=== PATIENT | male | born 1945 | race Caucasian/White ===

== ENCOUNTER → 2017-06-26 | Outpatient (CLI) | payer OTHER ==
[~2017-06-26] MED LIST: ACID CONTROL20 MG PO; ALPRAZOLAM 0.0.25 MG PO; ANTIDEPRESSANT; ASPIRIN325 PO; ATENOLOL 50MG T50 MG PO; CHEWABLE PRENA1 EACH PO; CIPRO250 M1 PO; CIPROFLOXACIN500 M1 PO; CLONIDINE; CLONIDINE HCL0.2 M2 PO; CLONIDINE PO; CLONIDINE0.1 PO; COZAAR 25 MG TA25 M2 PO; DARVOCET-N 1001 EACH PO; DILTIAZEM 24HR180 M1 PO; FAMOTIDINE; FLEXERIL PO; FLOMAX PO; HCTZ; HCTZ OR; HYDROCHLOROTHIA25 M1 PO; IBUPROFEN 200200 M1 PO; K-DUR10 ME1 OR; LANSOPRAZOLE30 MG PO; LASIX 40 MG TAB40 M2 PO; LEVAQUIN 500 M500 M2 PO; LIPITOR; LISINOPRIL20 MG PO; LISINOPRIL40 MG PO; LOPRESSOR 50 MG50 M1 PO; MAXZIDE-25 MG1 EACH PO; METOPROLOL SUCC25 M1 PO; MULTIVITAMINS1 EAC7 PO; NABUMETONE 500500 M1 PO; NAPROSYN500 MG PO; NEURONTIN600 MG PO; NICOTINE TRANSD21 M1 TD; NORCO 5-325 TA1 EACH PO; NORFLEX100 MG PO; PERCOCET 5-3251 EACH PO; PHENERGAN 25 MG25 M1 PO; PREDNISONE 20 M20 M1 PO; PROAIR HFA8.5 GM IH; REVIA 50 MG TAB50 M1 OR; TAMSULOSIN HCL0.4 M1 PO; TAMSULOSIN HCL0.4 MG PO; TRAMADOL 50 MG50 MG PO; TYLENOL325 MG PO; VICODIN PO; VISINE15 ML OPHTHALMIC; VITAMIN B-1100 M1 PO; VITAMIN D31000 UNI2 PO; VITAMIN D31000 UNIT PO; WELLBUTRIN 100100 M1 OR; XANAX 0.5 MG0.5 M1 PO; XARELTO10 MG PO; XARELTO20 MG PO; ZOFRAN ODT4 MG PO; ZOFRAN4 MG PO; ZYPREXA2.5 MG; ZYPREXA2.5 MG PO; [UNRECOGNIZED DRUG - REMARK]
--- NOTE | ~2017-06-26 | 2DMMODE ---
[facility] [place] [address] 2 D/M-MODE ECHOCARDIOGRAM Name: NIKOS LIVINGSTON Room #: REG [facility]#: [id number] Admission: 06/26/17 Attend Phys: Vamshi Shaw MD Discharge: Date of : 47 Date of Service: 06/26/17 1102 Report #: [id number] THIS REPORT FOR: //name// APPROVED REPORT Study performed: 06/26/2017 10:03:16 EXAM: Comprehensive 2D, Doppler, and color-flow Echocardiogram Patient Location: Out-Patient Status: routine BSA: 2.22 HR: 70 bpm BP: 180/82 mmHg Rhythm: NSR Other Information Study Quality: Adequate Indications History of Afib, CVA, HTN 2D Dimensions RVDd: 38.98 mm LVEF(%): 60.71 (>50%) IVSd: 14.31 (7-11mm) LVOT Diam: 21.56 (18-24mm) LVDd: 55.54 mm PWd: 14.04 (7-11mm) Ascending Ao: 42.96 (22-36mm) LVDs: 37.30 (25-40mm) Aortic Root: 40.77 mm Spicer's LVEF: 60.71 % Volumes Left Atrial Volume (Systole) Single Plane 4CH: 42.69 mL Single Plane 2CH: 41.06 mL LA ESV Index: 20.00 mL/m2 Aortic Valve AoV Peak Vicente.: 3.05 m/s AO Peak Gr.: 37.15 mmHg LVOT Max P.76 mmHg AO Mean Gr.: 19.21 mmHg AO V2 Mean: 2.06 m/s LVOT Max V: 1.30 m/s AO V2 VTI: 63.58 cm ALEN Vmax: 1.56 cm2 AI Vmax: 3.94 m/s AI [place]: 2.48 m/s2 [facility] [place] [address] 2 D/M-MODE ECHOCARDIOGRAM Name: NIKOS LIVINGSTON Room #: REG [facility]#: [id number] Admission: 06/26/17 Attend Phys: Vamshi Shaw MD Discharge: Date of : 47 Date of Service: 06/26/17 1102 Report #: [id number] AI PHT: 460.97 ms Mitral Valve E/A Ratio: 0.6 MV Decel. Time: 219.02 ms MV E Max Vicente.: 0.61 m/s MV A Vicente.: 0.98 m/s MV PHT: 63.52 ms IVRT: 124.57 ms Pulmonary Valve PV Peak Vicente.: 0.73 m/s PV Peak Gr.: 2.14 mmHg Tricuspid Valve RAP Estimate: 5.00 mmHg Left Ventricle The left ventricle is normal size. There is normal LV segmental wall motion. Moderate concentric left ventricular hypertrophy. Left ventricular systolic function is normal. LVEF is 60-65%. Mild diastolic dysfunction is present (impaired relaxation pattern). Right Ventricle The right ventricle is normal size. The right ventricular systolic function is normal. Atria The left atrium size is normal. The right atrium size is normal. Aortic Valve Aortic valve is calcified. Moderate aortic regurgitation. There is mild valvular aortic stenosis. Calculated aortic valve area is 1.6 cm2 with maximum pressure gradient of 37mmHg and mean pressure gradient of 19mmHg. Mitral Valve The mitral valve is normal in structure. Trace mitral regurgitation. No evidence of mitral valve stenosis. Tricuspid Valve The tricuspid valve is normal in structure. There is no tricuspid valve regurgitation noted. Pulmonic Valve [address] [address] 2 D/M-MODE ECHOCARDIOGRAM Name: NIKOS LIVINGSTON Room #: REG [facility]#: [id number] Admission: 06/26/17 Attend Phys: Vamshi Shaw MD Discharge: Date of : 47 Date of Service: 06/26/17 1102 Report #: [id number] The pulmonary valve is normal in structure. Trace pulmonic regurgitation. Great Vessels Aortic root is dilated at 4.1. Ascending aorta is dilated at 4.3cm. IVC is normal in size and collapses >50% with inspiration. Pericardium There is no pericardial effusion. <Conclusion> The left ventricle is normal size. Moderate concentric left ventricular hypertrophy. Left ventricular systolic function is normal. The right ventricle is normal size. The left atrium size is normal. There is mild valvular aortic stenosis. Calculated aortic valve area is 1.6 cm2 with maximum pressure gradient of 37mmHg and mean pressure gradient of 19mmHg. Moderate aortic regurgitation. There is no pericardial effusion. <ELECTRONICALLY SIGNED> By: Vamshi Shaw MD 06/26/17 1102 01 110 Vamshi Shaw MD /INF
== END ==
LOC: CV 08:29
DX: I51.7 Cardiomegaly (principal); I35.1 Nonrheumatic aortic (valve) insufficiency; I10 Essential (primary) hypertension; I48.91 Unspecified atrial fibrillation

== ENCOUNTER → 2018-01-01 | Outpatient (CLI) | payer OTHER | LOC: NUC 12-18 07:04 | DX: I48.91 Unspecified atrial fibrillation (principal); R55 Syncope and collapse; I10 Essential (primary) hypertension; Z72.0 Tobacco use ==

== ENCOUNTER 2019-09-14 09:10 | Emergency (ER) | payer OTHER ==
[~2019-09-14] VITALS: Ht 175.3 cm; Wt 88.5 kg
[2019-09-14 10:11] VITALS: BP 137/56
[2019-09-14] MEDS ORDERED: TRIAMTERENE/HCT1 CA1 PO (10:36)
== END 2019-09-14 10:11 | disposition home or self-care (01) ==
LOC: ER 09:10
DX: R07.89 Other chest pain (principal); I10 Essential (primary) hypertension; J45.909 Unspecified asthma, uncomplicated; K21.9 Gastro-esophageal reflux disease without esophagitis; I48.91 Unspecified atrial fibrillation; Z87.891 Personal history of nicotine dependence; Z79.01 Long term (current) use of anticoagulants; Z88.0 Allergy status to penicillin; Z88.2 Allergy status to sulfonamides; Z79.899 Other long term (current) drug therapy; Z87.11 Personal history of peptic ulcer disease; W10.9XXA Fall (on) (from) unspecified stairs and steps, initial encounter; Y93.89 Activity, other specified; Y92.89 Other specified places as the place of occurrence of the external cause; Y99.9 Unspecified external cause status

== ENCOUNTER 2019-10-04 03:13 | Emergency (ER) | payer OTHER ==
[~2019-10-04] VITALS: Ht 175.3 cm; Wt 90.7 kg
[~2019-10-04 03:13] MED LIST changes: +TRIAMTERENE/HCT1 CA1 PO
[2019-10-04] MEDS ORDERED: LISINOPRIL2.5 MG PO (03:25)
[2019-10-04] MEDS ORDERED: CATAPRES0.2 M1 PO (03:26)
[2019-10-04] MEDS ORDERED: CORRECTOL5 M1 PO (03:27)
[2019-10-04 04:05] LABS: URINE BILIRUBIN NEGATIVE (Negative); URINE BLOOD TRACE (Negative); URINE CLARITY CLEAR; URINE COLOR YELLOW; URINE GLUCOSE-RANDOM* NEGATIVE (Negative); URINE KETONES NEGATIVE (Negative); URINE LEUKOCYTES-REFLEX NEGATIVE (Negative); URINE NITRITE-REFLEX NEGATIVE (Negative); URINE PROTEIN (DIPSTICK) TRACE (Negative); URINE UROBILINOGEN 0.2 E.U./dl (0.2-1.0)
[2019-10-04 04:12] LABS: ABSOLUTE NEUTROPHILS 6.9 thou/uL (1.4-8.2); BASOPHILS 0.6 % (0.0-2.0); EOSINOPHILS 1.8 % (0.0-3.0); HEMATOCRIT 46.5 % (42.0-52.0); HEMOGLOBIN 16.1 gm/dL (14.0-18.0); LYMPHOCYTES 11.9 % (24.0-44.0); MCH 33.9 pg (26.0-34.0); MCHC 34.6 g/dL (28.0-37.0); MCV 98.1 fL (80.0-100.0); MONOCYTES 9.4 % (1.0-8.0); PLATELET COUNT 235 thou/uL (150-400); POLYS 76.3 % (36.0-66.0); RBC 4.74 mil/uL (4.50-6.00); RDW 12.6 % (10.5-14.5); WBC 9.1 thou/uL (4.0-11.0)
[2019-10-04 04:14] LABS: CALCIUM 9.2 mg/dL (8.5-10.1); POTASSIUM 3.4 mmol/L (3.5-5.1)
[2019-10-04 04:20] LABS: ALBUMIN 3.9 g/dL (3.4-5.0); TOTAL BILIRUBIN 0.8 mg/dL (<0.1-1.0); TOTAL PROTEIN 7.2 g/dL (6.4-8.2)
[2019-10-04] MEDS ORDERED: DULCOLAX10 MG RECTAL (06:19)
[2019-10-04] MEDS ORDERED: MIRALAX119 GM PO (06:19)
[2019-10-04 06:45] VITALS: BP 165/82
== END 2019-10-04 06:45 | disposition home or self-care (01) ==
LOC: ER 03:13
PROVIDERS: Emergency Medicine
DX: K59.00 Constipation, unspecified (principal); I10 Essential (primary) hypertension; K21.9 Gastro-esophageal reflux disease without esophagitis; J45.909 Unspecified asthma, uncomplicated; I48.91 Unspecified atrial fibrillation; Z86.73 Personal history of transient ischemic attack (TIA), and cerebral infarction without residual deficits; Z87.891 Personal history of nicotine dependence; Z88.0 Allergy status to penicillin; Z88.2 Allergy status to sulfonamides; Z90.89 Acquired absence of other organs

== ENCOUNTER 2019-10-24 02:29 | Inpatient (IN) | payer OTHER ==
[2019-10-24] VITALS (7 sets, daily range): BP systolic 134–182; BP diastolic 56–76
[~2019-10-24] VITALS: Ht 175.3 cm; Wt 85.7 kg
[~2019-10-24 02:29] MED LIST changes: +CATAPRES0.2 M1 PO; +CORRECTOL5 M1 PO; +DULCOLAX10 MG RECTAL; +LISINOPRIL2.5 MG PO; +MIRALAX119 GM PO
[2019-10-24 06:29] LABS: HEMATOCRIT 45.7 % (42.0-52.0); HEMOGLOBIN 15.5 gm/dL (14.0-18.0); MCH 33.5 pg (26.0-34.0); MCHC 33.9 g/dL (28.0-37.0); MCV 98.8 fL (80.0-100.0); RBC 4.63 mil/uL (4.50-6.00); RDW 12.5 % (10.5-14.5); WBC 9.9 thou/uL (4.0-11.0)
[2019-10-24 06:43] LABS: CALCIUM 9.5 mg/dL (8.5-10.1); POTASSIUM 4.5 mmol/L (3.5-5.1)
[2019-10-24 06:49] LABS: ALBUMIN 3.9 g/dL (3.4-5.0); DIRECT BILIRUBIN 0.2 mg/dL (<0.1-0.2); TOTAL BILIRUBIN 0.5 mg/dL (<0.1-1.0); TOTAL PROTEIN 7.2 g/dL (6.4-8.2)
[2019-10-24] MEDS ORDERED: METHOCARBAMOL500 M2 PO (07:10)
[2019-10-24 07:15] LABS: APTT 31.3 Seconds (24.5-32.8); INR 1.1
[2019-10-24] MEDS ORDERED: LORCET 5-325 M1 EACH PO (07:52)
--- NOTE | 2019-10-24 07:53 | NUR ---
ASSUMED CARE OF PT APPROX 071, REC REPORT AT 0740, PT HAD CALLED OUT SEVERAL TIMES FOR PAIN RELIEF FOR HIS SHOULDER. PLACED CALL OUT TO PHYSICIAN. A&0X4, SBA CURRENTLY, STATES HE TRIPPED ON CARPET ONCE HE AROSE FROM HIS RECLINER AT HOME. LIVES AT [facility], SEE SEPARATE INTERVENTIONS FOR ASSESSMENTS, ENCOURAGED PT TO USE CALL LIGHT FOR NEEDS, BED ALARM ENGAGED. WILL CONTINUE TO MONITOR AND FINISH ADMISSION UP SOON ABLE.
[2019-10-25 03:31] VITALS: BP 162/80
--- NOTE | 2019-10-25 05:09 | NUR ---
ASSUMED PT CARE AT 1900, PT A&OX4, SR/SB ON THE MONITOR, ASSESSMENTS CHARTED, COMPLAINED OF PAIN ON THE LEFT SHOULDER, MEDICATED PRN, MRI TO THE HEAD AND LEFT SHOULDER SHEDULED FOR AM. WORRIED ABT NOT HAVING A BM. RESTED WELL THROUGH THE [facility], WILL CONTINUE TO MONITOR
[2019-10-25 08:00] VITALS: BP 169/67
[2019-10-25 16:37] VITALS: BP 179/55
--- NOTE | 2019-10-25 17:30 | NUR ---
ASSUMED CARE 0700. ALERT X4 WITH FORGETFULNES, FROM INDEPENDENT LIVING. DENIES SOB, DENIES CHEST PAIN, LEFT SHOULD PAIN MANAGED WITH MEDICAITONS, MRI COMPLETED. ORTHO CONSULTED FOR LEFT SHOULD TEAR. NO BM NOTED AT THIS TIME USES URINAL WITH STAND ASSIST. COMPLAINT WITH CARES. FALL PRECAUTIONS IN PLACE AND CAN BE IMPULSIVE/FORGETFULL TO CALL FOR ASSISTANCE WHEN GETTING OUT OF BED. CALL LIGHT IN REACH. CONTINUE TO MONITOR
[2019-10-25 19:30] VITALS: BP 189/69
[2019-10-26 03:35] VITALS: BP 146/87
--- NOTE | 2019-10-26 04:20 | NUR ---
ASSESSMENT DONE AT THE START OF SHIFT. PT WAS RESTLESS AND VERY IMPULSIVE.REDIRECTED SEVERALY. BP ELEVATED. ORDERS RECD FOR BP MEDS AND SOME LORAZEPAM WHICH WAS GIVEN. PT TAKES MEDS WITH NO DIFFICULTIES. VOIDING ADEQUATELY.APPEARS TO HAVE SLEPT WELL.
[2019-10-26 07:15] VITALS: BP 192/88
[2019-10-26] MEDS ORDERED: OXYCODONE HCL 55 MG PO (07:57)
[2019-10-26 08:33] VITALS: BP 192/88
--- NOTE | 2019-10-26 08:49 | NUR ---
INITIAL ASSESSMENT: Pt evaluated for d/c planning needs. Reviewed chart and spoke with physician, nurse and pt. Pt is alert and oriented. Pt lives in independent apartment at [facility]. Pt was independent with ADL's and has history alcohol use. Pt plans on returning to independent apartment at with [facility]. Pt is agreeable with plan. Pt given choices and is agreeable with [facility]. Called [facility] and faxed orders. Pt to call facility to obtain ride. RN aware of d/c plans. No other needs identified.
[2019-10-26 09:36] VITALS: BP 192/88
[2019-10-26 09:46] VITALS: BP 192/88
--- NOTE | 2019-10-26 10:03 | NUR ---
PT CARE ASSUMED AT 0700. A&Ox3 PERSON PLACE AND TIME. PT NEEDS TO BE REDIRECTED MULTIPLE TIMES TO GO BACK INTO HIS ROOM OR SIT DOWN DUE TO BEING A FALL RISK. PT IS CONFUSED TO HIS SITUATION AND CONTINUESLY WANTS TO GET DRESSED AND GO BACK HOME. PT MEDICATION RETURNED TO PT THAT WERE STORED AT PHARMACY. IV DC'D. PT DISCHARGED AT 1000 TO [facility] WITH WHEELCHAIR VAN. REPORT CALLED TO FER GUZMÁN
[2019-10-26 12:24] VITALS: BP 192/88
== END 2019-10-26 09:30 | disposition home health service (06) | DRG 558 ==
LOC: ER 02:29 → EROBS 05:20 → 2N 05:20 → 4S 10-25 18:26
PROVIDERS: Emergency Medicine; ADMIT Family Medicine
DX: M75.102 Unspecified rotator cuff tear or rupture of left shoulder, not specified as traumatic (principal); I42.9 Cardiomyopathy, unspecified; S09.90XA Unspecified injury of head, initial encounter; I48.91 Unspecified atrial fibrillation; I10 Essential (primary) hypertension; E78.5 Hyperlipidemia, unspecified; Z66 Do not resuscitate; K21.9 Gastro-esophageal reflux disease without esophagitis; J45.909 Unspecified asthma, uncomplicated; W07.XXXA Fall from chair, initial encounter; I35.1 Nonrheumatic aortic (valve) insufficiency; Z87.891 Personal history of nicotine dependence; Z90.89 Acquired absence of other organs; Z79.01 Long term (current) use of anticoagulants; Z87.11 Personal history of peptic ulcer disease; Z79.899 Other long term (current) drug therapy; Z88.0 Allergy status to penicillin; Y93.89 Activity, other specified; Z88.8 Allergy status to other drugs, medicaments and biological substances; Z88.2 Allergy status to sulfonamides; Y92.89 Other specified places as the place of occurrence of the external cause; Y99.8 Other external cause status; Z86.73 Personal history of transient ischemic attack (TIA), and cerebral infarction without residual deficits
CPT/HCPCS: 10081; 10102; 10195

== ENCOUNTER 2019-11-03 07:10 | Emergency (ER) | payer OTHER ==
[~2019-11-03] VITALS: Ht 175.3 cm; Wt 88.5 kg
[~2019-11-03 07:10] MED LIST changes: +LORCET 5-325 M1 EACH PO; +METHOCARBAMOL500 M2 PO; +OXYCODONE HCL 55 MG PO
[2019-11-03] MEDS ORDERED: NORCO 5-325 TA1 EAC2 PO (08:24)
[2019-11-03] MEDS ORDERED: MIRALAX119 GM PO (08:24)
[2019-11-03 08:50] VITALS: BP 151/74
== END 2019-11-03 08:50 ==
LOC: ER 07:10
DX: M54.6 Pain in thoracic spine (principal); R07.81 Pleurodynia; I10 Essential (primary) hypertension; I48.91 Unspecified atrial fibrillation; J45.909 Unspecified asthma, uncomplicated; K21.9 Gastro-esophageal reflux disease without esophagitis; Z90.49 Acquired absence of other specified parts of digestive tract; Z87.891 Personal history of nicotine dependence; Z88.0 Allergy status to penicillin; Z88.2 Allergy status to sulfonamides; Z88.8 Allergy status to other drugs, medicaments and biological substances; W18.39XA Other fall on same level, initial encounter; Y93.89 Activity, other specified; Y92.098 Other place in other non-institutional residence as the place of occurrence of the external cause; Y99.8 Other external cause status

== ENCOUNTER → 2019-12-07 | Outpatient (CLI) | payer OTHER ==
[~2019-12-07] MED LIST changes: +NORCO 5-325 TA1 EAC2 PO
== END ==
LOC: SJCVCIMAG 09:01
DX: I08.3 Combined rheumatic disorders of mitral, aortic and tricuspid valves (principal); I11.9 Hypertensive heart disease without heart failure; R94.31 Abnormal electrocardiogram [ECG] [EKG]; I48.92 Unspecified atrial flutter; R60.9 Edema, unspecified; I48.91 Unspecified atrial fibrillation; K21.9 Gastro-esophageal reflux disease without esophagitis; E78.5 Hyperlipidemia, unspecified; F17.210 Nicotine dependence, cigarettes, uncomplicated; Z86.73 Personal history of transient ischemic attack (TIA), and cerebral infarction without residual deficits; Z79.899 Other long term (current) drug therapy; Z88.0 Allergy status to penicillin; Z88.2 Allergy status to sulfonamides; Z72.89 Other problems related to lifestyle